=== PATIENT | male | born 1975 | race Caucasian/White ===

== ENCOUNTER 2025-06-18 11:58 | Emergency (ER) | payer MEDICARE ==
[~2025-06-18] VITALS: Ht 182.9 cm; Wt 92.6 kg
[2025-06-18 12:38] LABS: BASO # 0.1 10^3/uL (0.0-0.2); BASO % 0.9 % (0.0-1.0); EOS # 0.1 10^3/uL (0.0-0.5); EOS % 0.6 % (0.0-3.0); LYMPH # 2.1 10^3/uL (1.5-5.0); LYMPH % 24.5 % (24.0-44.0); MONO # 1.0 10^3/uL (0.0-0.8); MONO % 11.7 % (2.0-8.0); NEUTROPHILS # 5.4 10^3/uL (1.5-8.5); NEUTROPHILS % 62.1 % (36.0-66.0); PLATELET COUNT, AUTOMATED 205 10^3/uL (150-450)
[2025-06-18 13:01] LABS: CPK CREATINE PHOSPHOKINASE 64 U/L (46-171)
[2025-06-18 13:02] LABS: ALT/SGPT 25 U/L (7.0-40); AST/SGOT 15 U/L (<34); CALCIUM LEVEL 9.6 MG/DL (8.5-10.1); CARBON DIOXIDE LEVEL 26 MMOL/L (20-31); CHLORIDE LEVEL 106 MMOL/L (98-107); CK-MB VALUE MASS < 1.0 NG/ML (<3.6); CREATININE FOR GFR 0.85 MG/DL (0.70-1.30); GLOMERULAR FILTRATION RATE > 90.0 (>60); POTASSIUM SERUM 3.9 MMOL/L (3.5-5.1); SODIUM LEVEL 141 MMOL/L (136-145)
[2025-06-18 13:07] LABS: FREE T4 1.19 NG/DL (0.89-1.76)
[2025-06-18 13:09] LABS: INR 0.91
[2025-06-18] MEDS ORDERED: ISOVUE-370 76% 100 ML VIAL As Ordered ONE (13:20)
[2025-06-18] MEDS: KETOROLAC 30 MG/ML 1 ML VIAL IV ONE (13:52)
[2025-06-18 14:08] LABS: CK-MB VALUE MASS < 1.0 NG/ML (<3.6)
[2025-06-18 14:10] LABS: CPK CREATINE PHOSPHOKINASE 63 U/L (46-171)
[2025-06-18] MEDS: PROPRANOLOL 10 MG TAB PO ONE (15:31)
[2025-06-18 16:30] VITALS: BP 176/108
[2025-06-18 16:37] VITALS: TEMP 98.3; O2SAT 98
== END 2025-06-18 16:57 | disposition home or self-care (01) ==
LOC: M ED 11:58
DX: R07.89 Other chest pain (principal); I10 Essential (primary) hypertension; F31.9 Bipolar disorder, unspecified; Z87.820 Personal history of traumatic brain injury; F17.200 Nicotine dependence, unspecified, uncomplicated; F12.10 Cannabis abuse, uncomplicated; Z88.2 Allergy status to sulfonamides
CPT/HCPCS: 71045; 71275; 74174; 80047; 80048; 80076; 82550; 82553; 83690; 84439; 84443; 84484; 85025; 85610; 85730; 87486; 87581; 87633; 87798; 93005; 93041; 94760; 96374; 99285; J1885; Q9967